=== PATIENT | female | born 1970 | race Caucasian/White ===

== ENCOUNTER 2017-07-20 16:53 | Emergency (ER) | payer OTHER ==
--- NOTE | 2017-07-20 17:44 | PDOC ---
Rapid Medical Evaluation Time Seen by Provider: 07/20/17 17:41 Medical Evaluation: Allergies Allergy/AdvReac Type Severity Reaction Status Date / Time No Known Allergies Allergy Verified 08/20/15 18:07 07/20/17 17:41 I have performed a brief in-person evaluation of the patient. The patient presents with a chief complaint of : sent by pmd for further evaluation of left flank pain with no dysuria. States left flank pain since Tuesday, has history of kidney stones Seen by pmd sent to ed for further evaluation and ultrasound. Denies fever or chills Pertinent physical exam findings. NAD unlabored breathing + left cva tenderness, non tender lower abdomen I have ordered the following urinalysis, labs This patient will proceed to the ED for further evaluation.
[2017-07-20] MEDS ORDERED: SODIUM CHLORIDE 0.9% 500 ML INFUS.BAG IV ONE (17:47)
[2017-07-20 17:48] VITALS: BP 104/44; PULSE 77; TEMP 98.2; BMI 37.0
--- NOTE | 2017-07-20 17:56 | PDOC ---
History of Present Illness - General Chief Complaint: Pain, Acute Stated Complaint: PCP SENT/PAIN, ACUTE Time Seen by Provider: 07/20/17 17:41 - History of Present Illness Initial Comments: 47 year old female with PMH of renal stone x 2 presenting with left lower back pain and urinary symptoms for the past few days. She states that this pain radiates from her left lower back to her pelvis since Tuesday with darker urine. Denies nausea, vomiting, diarrhea, constipation or other symptoms. She has never been worked up by a urologist but stats she was told that she had some kidney disease when she was young. 07/20/17 18:43 Past History - Past Medical History Allergies/Adverse Reactions: Allergies Allergy/AdvReac Type Severity Reaction Status Date / Time No Known Allergies Allergy Verified 07/20/17 17:43 Home Medications: Ambulatory Orders NK [No Known Home Medication] 07/20/17 COPD: No Kidney Stones: Yes - Reproductive History Spontaneous : 2 - Suicide/Smoking/Psychosocial Hx Smoking Status: Yes Smoking History: Former smoker Have you smoked in the past 12 months: Yes Number of Cigarettes Smoked Daily: 3 If you are a former smoker, when did you quit?: 12[facility] Information on smoking cessation initiated: No Hx Alcohol Use: No Drug/Substance Use Hx: No Substance Use Type: None Review of Systems - Review of Systems Constitutional: No: Chills, Diaphoresis, Fever HEENTM: No: Recent change in vision, Double Vision Respiratory: No: Cough, Orthopnea, Shortness of Breath Cardiac (ROS): No: Chest Pain, Edema, Irregular Heart Rate ABD/GI: No: Constipated, Diarrhea, Nausea, Vomiting : Yes: Frequency. No: Burning, Dysuria, Discharge, Pain Musculoskeletal: Yes: Back Pain Integumentary: No: Lesions, Lumps, Pallor Neurological: No: Headache, Numbness, Paresthesia, Weakness Psychiatric: No: Anxiety, Depression *Physical Exam - Vital Signs Last Vital Signs Temp Pulse Resp BP Pulse Ox 98.2 F 77 20 104/44 100 07/20/17 17:43 07/20/17 17:43 07/20/17 17:43 07/20/17 17:43 07/20/17 17:43 - Physical Exam General Appearance: Yes: Nourished, Appropriately Dressed. No: Apparent Distress HEENT: positive: EOMI, DEONDRE, Normal ENT Inspection, Normal Voice Neck: positive: Trachea midline, Normal Thyroid, Supple. negative: Tender, Rigid Respiratory/Chest: positive: Lungs Clear, Normal Breath Sounds. negative: Chest Tender, Respiratory Distress, Accessory Muscle Use Cardiovascular: positive: Regular Rhythm, Regular Rate Gastrointestinal/Abdominal: positive: Normal Bowel Sounds, Flat, Soft. negative : Tender Musculoskeletal: positive: Normal Inspection. negative: CVA Tenderness Extremity: positive: Normal Capillary Refill, Normal Inspection, Normal Range of Motion. negative: Tender Integumentary: positive: Normal Color, Dry, Warm Neurologic: positive: computer clerk II-XII NML intact, Fully Oriented, Alert, Normal Mood/ Affect, Normal Response, Motor Strength 06/25 ED Treatment Course - LABORATORY CBC & Chemistry Diagram: 07/20/17 18:01 07/20/17 18:01 Medical Decision Making - Medical Decision Making 47 year old female with PMH Of renal nephrolithiases with left LBP/ flank pain radiating to the groin concerning for the same. UA clear and HCG negative. Given 15 Toradol IV and pending spiral CT for stone as patient was signed out ot Dr. Bartlett in stable condition. 07/20/17 18:53 *DC/Admit/Observation/Transfer Diagnosis at time of Disposition: Renal colic on left side - Referrals Referrals: Jennifer Figueroa MD [Primary Care Provider] - - Patient Instructions - Post Discharge Activity
[2017-07-20 18:12] LABS: BASO % 1.3 % (0-2.0); EOS % 5.4 % (0-4.5); HEMATOCRIT 39.5 % (32.4-45.2); HEMOGLOBIN 12.9 GM/dL (10.7-15.3); LYMPH % 26.5 % (8-40); MCH 26.8 pg (25.7-33.7); MCHC 32.7 g/dl (32.0-36.0); MEAN CELL VOLUME 81.9 fl (80-96); MEAN PLT VOLUME 10.2 fl (7.5-11.1); MONO % 7.6 % (3.8-10.2); NEUT % 59.2 % (42.8-82.8); PLATELET COUNT 227 K/MM3 (134-434); RBC 4.83 M/mm3 (3.60-5.2); RDW 14.9 % (11.6-15.6); WHITE BLOOD COUNT 9.5 K/mm3 (4.0-10.0)
[2017-07-20] MEDS ORDERED: KETOROLAC TROMETHAMINE 15 MG/ML VIAL IVPUSH ONE (18:26)
[2017-07-20 18:31] LABS: URINE APPEARANCE CLEAR; URINE BILIRUBIN NEGATIVE (<2.0 mg/dL); URINE COLOR YELLOW; URINE GLUCOSE (UA) NEGATIVE (NEGATIVE); URINE KETONE TRACE (NEGATIVE); URINE LEUK ESTERASE NEGATIVE (NEGATIVE); URINE NITRITE NEGATIVE (NEGATIVE); URINE PROTEIN NEGATIVE (NEGATIVE); URINE UROBILINOGEN NEGATIVE mg/dL (0.2-1.0)
[2017-07-20] MEDS ORDERED: KETOROLAC TROMETHAMINE 15 MG/ML VIAL ONE (18:34)
[2017-07-20 18:40] LABS: ALBUMIN 3.8 g/dl (3.4-5.0); ANION GAP 8 (8-16); BILIRUBIN,TOTAL 0.2 mg/dL (0.2-1.0); BLOOD UREA NITROGEN 13 mg/dL (7-18); CALCIUM 9.2 mg/dL (8.5-10.1); CHLORIDE 107 mmol/L (98-107); CO2 27 mmol/L (21-32); CREATININE 0.9 mg/dL (0.55-1.02); GLUCOSE,RANDOM 82 mg/dL (74-106); POTASSIUM 4.2 mmol/L (3.5-5.1); SGOT/AST 25 U/L (15-37); SGPT/ALT 23 U/L (12-78); SODIUM 142 mmol/L (136-145); TOT PROT 7.4 g/dl (6.4-8.2)
[2017-07-20 18:41] LABS: ALK PHOS 77 U/L (45-117)
--- NOTE | 2017-07-20 20:51 | PDOC ---
*Physical Exam - Vital Signs Last Vital Signs Temp Pulse Resp BP Pulse Ox 98.2 F 77 20 104/44 100 07/20/17 17:43 07/20/17 17:43 07/20/17 17:43 07/20/17 17:43 07/20/17 17:43 - Physical Exam Comments: 07/20/17 20:50 GENERAL: Awake, alert, and fully oriented, in no acute distress HEAD: No signs of trauma, normocephalic, atraumatic EYES: PERRLA, EOMI, sclera anicteric, conjunctiva clear ENT: Hearing grossly normal, nares patent, oropharynx clear without exudates. Moist mucosa NECK: Normal ROM, supple, no lymphadenopathy, JVD, or masses LUNGS: No distress, speaks full sentences, clear to auscultation bilaterally HEART: Regular rate and rhythm, normal S1 and S2, no murmurs, rubs or gallops, peripheral pulses normal and equal bilaterally. ABDOMEN: Soft, +left sided flank ttp, normoactive bowel sounds. No guarding, no rebound. No masses EXTREMITIES : Normal inspection, Normal range of motion, no edema. No clubbing or cyanosis. SKIN: Warm, Dry, normal turgor, no rashes or lesions noted ED Treatment Course - LABORATORY CBC & Chemistry Diagram: 07/20/17 18:01 07/20/17 18:01 - ADDITIONAL ORDERS Additional order review: Laboratory Results 07/20/17 07/20/17 07/20/17 18:05 18:05 18:01 Sodium 142 Potassium 4.2 Chloride 107 Carbon Dioxide 27 Anion Gap 8 BUN 13 Creatinine 0.9 Creat Clearance w eGFR > 60 Random Glucose 82 Calcium 9.2 Total Bilirubin 0.2 D AST 25 ALT 23 Alkaline Phosphatase 77 Total Protein 7.4 Albumin 3.8 Urine Color Yellow Urine Appearance Clear Urine pH 5.0 Ur Specific Moroni 1.024 Urine Protein Negative Urine Glucose (UA) Negative Urine Ketones Trace H Urine Blood Negative Urine Nitrite Negative Urine Bilirubin Negative Urine Urobilinogen Negative Ur Leukocyte Esterase Negative Urine HCG, Qual Negative 07/20/17 18:01 RBC 4.83 MCV 81.9 MCHC 32.7 RDW 14.9 MPV 10.2 Neutrophils % 59.2 Lymphocytes % 26.5 Monocytes % 7.6 Eosinophils % 5.4 H Basophils % 1.3 - Medications Given in the ED: ED Medications Discontinued Medications Generic Name Dose Route Start Last Admin Trade Name Freq PRN Reason Stop Dose Admin Ketorolac Tromethamine 15 mg 07/20/17 18:26 07/20/17 18:37 Toradol Injection - IVPUSH 07/20/17 18:27 15 mg ONCE ONE Administration Sodium Chloride 1,000 ml 07/20/17 17:47 07/20/17 18:14 Normal Saline - IV 07/20/17 17:48 1,000 ml ONCE ONE Administration Medical Decision Making - Medical Decision Making 07/20/17 20:48 47 yo F with h/o nephrolithiases who p/w left flank pain radiating to the groin . R/o nephrolithaisis/obstructive uropathy. Received handoff from Dr. Baker. CBC, CMP, UA negative. HCG negative. Patient received [address] pending. ED Course: 07/20/17 20:50 CT AP: Unremarkable. Minimal to mild sigmoid diverticulosis. 07/20/17 20:57 Patient pain mildly improved. 07/20/17 21:04 Naproxen sent to pharmacy. Patient stable for d/c with return precautions. Advised to f/u with PMD. *DC/Admit/Observation/Transfer Diagnosis at time of Disposition: Renal colic on left side - Discharge Dispostion Disposition: HOME Condition at time of disposition: Stable Decision to Admit order: No - Prescriptions Prescriptions: Naproxen 250 mg PO BID PRN 15 Days #30 tablet MDD 2 tab PRN Reason: Back Pain - Referrals Referrals: Jennifer Figueroa MD [Primary Care Provider] - - Patient Instructions Printed Discharge Instructions: DI for Flank Pain Additional Instructions: Please return to the emergency department with any new or worsening symptoms or concerns. Please follow up with your primary care physician within 72 hours. Can take Naproxen two times a day as needed for pain. - Post Discharge Activity - Attestations Physician Attestion: 07/20/17 20:51 I attest to the information provided in this note.
== END 2017-07-20 21:34 | disposition home or self-care (01) ==
LOC: JER 16:53
PROC: 3E0337Z Introduction of Electrolytic and Water Balance Substance into Peripheral Vein, Percutaneous Approach (ICD-10-PCS; principal; 2017-07-20)
PROC: 3E0333Z Introduction of Anti-inflammatory into Peripheral Vein, Percutaneous Approach (ICD-10-PCS; 2017-07-20)
DX: N23 Unspecified renal colic (principal); N20.0 Calculus of kidney; Z87.891 Personal history of nicotine dependence
CPT/HCPCS: 36415; 74176; 80053; 81003; 84703; 85025; 87086; 99284-25

== ENCOUNTER 2017-08-07 13:46 | Emergency (ER) | payer OTHER ==
[2017-08-07 14:17] VITALS: BP 120/72; PULSE 90; TEMP 98; BMI 37.0
[2017-08-07] MEDS ORDERED: KETOROLAC TROMETHAMINE 60 MG/2 ML VIAL IM ONE (14:33)
--- NOTE | 2017-08-07 14:36 | PDOC ---
History of Present Illness - General Chief Complaint: Pain, Acute Stated Complaint: PAIN Time Seen by Provider: 08/07/17 14:18 History Source: Patient Exam Limitations: No Limitations - History of Present Illness Initial Comments: 08/07/17 14:34 Patient came with complaints of left shoulder and neck pain 2-3 days. States started in her neck and is progressively worsened where she has difficulty lifting her arm due to the tenderness and spasm of her left shoulder and neck muscles. Has intermittent numbness to her fingers but resolves. Has taken only Tylenol for pain relief. Denies any heavy lifting or strenuous activity recently , denies any recent trauma. Works as a student. Occurred: reports: yesterday Severity: reports: moderate Pain Location: reports: back, neck Associated Symptoms (Fall): muscle spasms, neck pain Past History - Travel Traveled outside of the country in the last 30 days: No Close contact w/someone who was outside of country & ill: No - Past Medical History Allergies/Adverse Reactions: Allergies Allergy/AdvReac Type Severity Reaction Status Date / Time No Known Allergies Allergy Verified 08/07/17 14:15 Home Medications: Ambulatory Orders Cyclobenzaprine HCl 10 mg PO Q8H PRN #14 tablet 08/07/17 COPD: No Kidney Stones: Yes - Reproductive History Cervical CA: No Dysfunctional Uterine Bleeding: No Ectopic : No Endometrial CA: No Polycystic Ovaries: No Spontaneous : 2 - Suicide/Smoking/Psychosocial Hx Smoking Status: Yes Smoking History: Never smoked Have you smoked in the past 12 months: Yes Number of Cigarettes Smoked Daily: 3 If you are a former smoker, when did you quit?: 12mths Information on smoking cessation initiated: No Hx Alcohol Use: No Drug/Substance Use Hx: No Substance Use Type: None Review of Systems - Review of Systems Able to Perform ROS?: Yes Is the patient limited Nepali proficient: Yes Constitutional: Yes: See HPI. No: Symptoms Reported, Fever, Loss of Appetite HEENTM: Yes: See HPI. No: Symptoms Reported Respiratory: Yes: Symptoms reported, See HPI, Cough Musculoskeletal: Yes: Symptoms Reported, See HPI, Back Pain, Muscle Pain, Neck Pain (2 left sternocleidomastoid, with pressure reproducing pain to left shoulder and scalp at pressure points. Muscle is tense with some spasm palpated. ) Integumentary: Yes: Symptoms Reported Neurological: Yes: Symptoms reported, See HPI, Headache All Other Systems: Reviewed and Negative *Physical Exam - Vital Signs Last Vital Signs Temp Pulse Resp BP Pulse Ox 98 F 90 18 120/72 98 08/07/17 14:13 08/07/17 14:13 08/07/17 14:13 08/07/17 14:13 08/07/17 14:13 - Physical Exam General Appearance: Yes: Nourished, Appropriately Dressed, Apparent Distress, Mild Distress HEENT: positive: DEONDRE, Normal ENT Inspection, Normal Voice, TMs Normal, Pharynx Normal Neck: positive: Tender, Supple, Decreased range of motion (due to pain and spasm to SCM and upper trapezius . No CSPine pain , crepitus or stepofff. ), Other Respiratory/Chest: positive: Lungs Clear, Normal Breath Sounds Extremity: positive: Normal Capillary Refill, Normal Range of Motion (but painful) Integumentary: positive: Normal Color, Dry, Warm Neurologic: positive: wildlife control agent II-XII NML intact, Fully Oriented, Alert, Normal Mood/ Affect, Normal Response, Motor Strength 5/5 *DC/Admit/Observation/Transfer Diagnosis at time of Disposition: Muscle pain, cervical - Discharge Dispostion Disposition: HOME Condition at time of disposition: Stable Decision to Admit order: No - Prescriptions Prescriptions: Cyclobenzaprine HCl 10 mg PO Q8H PRN #14 tablet PRN Reason: spasm - Referrals Referrals: Jennifer Figueroa MD [Primary Care Provider] - - Patient Instructions Printed Discharge Instructions: DI for Cervical Muscle Strain Additional Instructions: Rest, no heavy lifting or exercise until pain is resolved Hot soaks to neck and low back as often as possible/hot showers or Jacuzzis No massage or therapy until spasm is gone Continue Naprosyn 500 mg tablet, 1 tablet every 8 hours for the next 3 days then as needed for pain and swelling Cyclobenzaprine 1-10mg every 8 hours as needed for spasm If not significant improvement within 24 hours with medication and rest regime, followup with private physician for change in medications and /or therapy. - Post Discharge Activity Forms/Work/School Notes: Back to School
[2017-08-07] MEDS ORDERED: KETOROLAC TROMETHAMINE 60 MG/2 ML VIAL ONE (14:37)
== END 2017-08-07 14:46 | disposition home or self-care (01) ==
LOC: JER 13:46 → JERFT 13:46
PROC: 3E0233Z Introduction of Anti-inflammatory into Muscle, Percutaneous Approach (ICD-10-PCS; principal; 2017-08-07)
DX: M62.838 Other muscle spasm (principal)
CPT/HCPCS: 96372; 99281-25

== ENCOUNTER 2018-01-16 06:01 | Day surgery (SDC) | payer OTHER ==
[2018-01-05 10:32] VITALS: BMI 35.5
[2018-01-16] MEDS ORDERED: ROPIVACAINE HCL 0.5% 30ML VIAL ONE (07:12)
[2018-01-16] MEDS ORDERED: EPINEPHrine/PF 1 MG/1 ML (1:1,000) AMPULE ONE (07:13)
[2018-01-16] MEDS ORDERED: MIDAZOLAM HCL 2 MG/2 ML SINGLE DOSE VIAL ONE (07:27)
[2018-01-16] MEDS ORDERED: fentaNYL CITRATE 250 MCG/5 ML VIAL ONE ×2 (07:27)
[2018-01-16] MEDS ORDERED: MORPHINE 5 MG/10 ML AMP - FOR COMPOUNDING USE ONLY ONE (07:29)
[2018-01-16] MEDS ORDERED: ROCURONIUM BROMIDE 50 MG/5 ML VIAL ONE (07:29)
[2018-01-16] MEDS ORDERED: PROPOFOL 20 ML ONE (08:11)
[2018-01-16] MEDS ORDERED: DEXAMETHASONE SOD PHOSPHATE 4 MG/1 ML VIAL ONE ×2 (08:14→08:54)
[2018-01-16] MEDS ORDERED: LIDOCAINE HCL/PF 2% SDV 5ML VIAL ONE (08:14)
[2018-01-16] MEDS ORDERED: ONDANSETRON 4 MG/2 ML VIAL ONE ×2 (08:14→08:54)
[2018-01-16] MEDS ORDERED: GLYCOPYRROLATE 0.2 MG/1 ML VIAL ONE ×2 (09:06)
[2018-01-16] MEDS ORDERED: NEOSTIGMINE METHYLSULFATE 0.5 MG/ML - 10 ML MDV ONE (09:06)
[2018-01-16] MEDS ORDERED: IBUPROFEN 400 MG TABLET (FP) PO PRN (10:12)
[2018-01-16] MEDS ORDERED: oxyCODONE HCL 5 MG TABLET PO PRN ×2 (10:12→11:37)
[2018-01-16] MEDS ORDERED: ACETAMINOPHEN 325 MG TABLET (FP) PO PRN (10:12)
[2018-01-16] MEDS ORDERED: ONDANSETRON 4 MG/2 ML VIAL IVPUSH PRN (10:12)
[2018-01-16] MEDS ORDERED: LACTATED RINGERS SOLUTION 1,000 ML IV SCH (10:15)
[2018-01-16] MEDS ORDERED: oxyCODONE HCL 5 MG TABLET ONE (11:27)
[2018-01-16] MEDS ORDERED: oxyCODONE HCL 5 MG TABLET PO ONE (11:30)
[2018-01-16] MEDS ORDERED: PROMETHAZINE HCL 25 MG/1 ML VIAL IVPUSH ONE ×2 (11:40→11:45)
[2018-01-16 14:05] VITALS: BP 118/79; PULSE 87; TEMP 97.9
--- NOTE | 2018-01-16 15:24 | OPR ---
Date of Procedure: 01/16/2018 Procedure: Left Shoulder- 1. Diagnostic arthroscopy. 2. Arthroscopic limited debridement of glenohumeral joint (26252) 3. Arthroscopic subacromial decompression (24290). 4. Arthroscopic-assisted biceps tenodesis-subpectoral (80258). Preoperative Diagnoses: 1. Biceps tendon degeneration. 2. Subacromial impingement. 3. Glenohumeral synovitis. Postoperative Diagnoses: 1. Biceps tendon degeneration and tear. 3. Labral degeneration and fraying; SLAP tear. 4. Partial articular sided rotator cuff tear-supraspinatus 5. Glenohumeral synovitis. 6. Subacromial bursitis and adhesions. Surgeon: Marlo Grider DO Assistants: Guillermo Christensen DO Anesthesia: General and local infiltration analgesic; suprascapular nerve, axillary nerve, local superficial field Estimated Blood Loss: Minimal Drains: None Total IV Fluids: Per anesthesia record Specimens: None Implants: 2.6 mm FiberTak, double-loaded with 1.2 mm SutureTape (Arthrex) Complications: None Disposition: PACU Condition: Hemodynamically stable Indications: Rena Arteaga presented to us with chronic shoulder pain that failed conservative measures. Her symptoms, signs, and imaging were consistent with the above noted diagnoses. She ultimately elected to proceed with surgical intervention after discussion of the risks, benefits, alternatives. We discussed risks including but not limited to, bleeding, pain, infection, scarring, damage to neurovascular structures, blood clots, pulmonary embolus, need for additional surgery, incomplete relief of pain, and incomplete return of function. She expressed understanding and wished to proceed. She underwent preoperative medical evaluation clearance and optimization prior to surgery. Procedure Details: Ms. Arteaga was identified in the preoperative area. The shoulder was marked as the operative site and consent was completed and confirmed. She was later transferred to the operating room and placed in supine position the operating room. General anesthesia was induced without difficulty. She was repositioned into beach chair with all bony prominences appropriately padded. The neck was in neutral alignment. A surgical time-out was performed identifying the correct patient, procedure, and site. Antibiotics were given within 1 hour prior to surgical incision. The upper extremity was prepped and draped in standard sterile fashion. Diagnostic arthroscopy: We began the procedure with the standard posterolateral portal, entered the glenohumeral joint, and an anterior portal was made within the rotator cuff interval under direct visualization with the assistance of a spinal needle. A probe was used to assist with diagnostic arthroscopy and we visualized from both posteriorly and anteriorly. Evaluation of the glenohumeral joint showed mild to moderate synovitis superiorly. There was a Type II SLAP tear. The anterior/inferior labrum was intact. There was posterior/inferior labral fraying. The biceps tendon showed hyperemia. The rotator cuff interval was normal. The axillary recess was empty. Evaluation of the subscapularis tendon showed no tears. Evaluation of the supraspinatus showed partial (<25%) tearing of the articular surface. The infraspinatus and teres minor tendons were intact. Evaluation of the glenoid and humeral head showed no significant chondral defects. Evaluation of the subacromial space showed moderate bursitis and adhesions. There was a small acromial spur anteriorly. There was fraying of the CA ligament. The AC joint was intact. Arthroscopic limited debridement of the glenohumeral joint: We used a combination of the arthroscopic motorized shaver and radiofrequency device to perform a limited debridement inside the glenohumeral joint. The hyperemia, erythema, and synovitis of the joint and joint capsule was focally debrided. Synovitic fronds were thermally ablated. Labral fraying and degeneration was also resected and debrided to a stable edge. The biceps tendon was tenotomized as it inserted into the superior labral complex and the remaining portion of the biceps tendon was allowed to retract into the bicipital groove for later tenodesis. Arthroscopic subacromial decompression: The subacromial space was entered from posteriorly. A separate anterior-lateral portal was made for additional instrumentation and visualization. We then visualized the rotator cuff and did not identify any tear on the bursal surface of the tendon. We performed our subacromial decompression in a systematic fashion from anterior to posterior and from lateral to medial, removing the bursal tissue carefully. This was done with a radiofrequency device and motorized shaver. The undersurface of the acromion was skeletonized and gently debrided to a flat smooth undersurface. There was a small anterior-inferior spur that was resected with a motorized bur. Arthroscopic-assisted biceps tenodesis: We made a 2 cm incision along Aditya's lines in the axillary fold. Sharp dissection was carried out down to the level of the pectoralis major. The plane between the pectoralis major and the short head of biceps tendon was developed bluntly down to the level of the humeral bone, where we identified the long head of biceps tendon and delivered it retrograde out of the wound. The underlying soft tissue was resected and the bone was frayed with a 1/4-inch osteotome. We then selected a 2.6 mm FiberTak, double-loaded with 1.2 mm SutureTape (Arthrex) and placed the anchor high within the bicipital groove underneath the pectoralis major tendon. The sutures were then passed just proximal to the musculotendinous junction of the long head of biceps in an alternating simple versus lasso loop configuration. Tying these sutures down tenodesed the tendon onto the underlying frayed humeral bone. We used an arthroscopic knot pusher to get excellent knot fixation, and then arthroscopic handbag parts cutter to cut the remaining length of the suture. The remaining length of the biceps tendon was resected. We confirmed our arthroscopic knots and position of the biceps tendon underneath the pectoralis major with the arthroscope. We thoroughly irrigated the wound. The wound was closed in a buried, deep 2-0 Vicryl stitches, followed by a 3-0 Biosyn subcuticular stitch and then Dermabond skin glue. Wound closure: The wounds were closed with 3-0 Biosyn subcuticular stitch with Steri strips. The shoulder was sterilely dressed and the arm was placed in a shoulder immobilizer. Post-operative Details: The patient was transferred to the recovery room in stable condition. I spoke with the patient regarding the operation after surgery. Postoperative rehabilitation: Arthroscopic biceps tenodesis protocol She will remain in a sling for 3-4 weeks. Early passive range of motion okay with no limits and advance as tolerated; no pendulums. No strengthening for at least 3 months. Attestation for assistant signal maintainer: Dr. Guillermo Christensen DO acted as the assistant signal maintainer. There was no qualified resident available to do so. I was present for surgical time out and all hanley and critical portions of the case. Marlo Grider DO Orthopedic Surgery
== END 2018-01-16 14:00 | disposition home or self-care (01) ==
LOC: FASU 06:01
PROVIDERS: ATTEND Orthopaedic Surgery
PROC: 0RBK4ZZ Excision of Left Shoulder Joint, Percutaneous Endoscopic Approach (ICD-10-PCS; principal; 2018-01-16 08:11)
PROC: 0RNK4ZZ Release Left Shoulder Joint, Percutaneous Endoscopic Approach (ICD-10-PCS; 2018-01-16 08:11)
PROC: 0LS20ZZ Reposition Left Shoulder Tendon, Open Approach (ICD-10-PCS; 2018-01-16 08:11)
DX: M67.814 Other specified disorders of tendon, left shoulder (principal); M65.812 Other synovitis and tenosynovitis, left shoulder; M75.102 Unspecified rotator cuff tear or rupture of left shoulder, not specified as traumatic; M75.52 Bursitis of left shoulder; S43.432A Superior glenoid labrum lesion of left shoulder, initial encounter; X58.XXXA Exposure to other specified factors, initial encounter; Y93.9 Activity, unspecified; Y92.9 Unspecified place or not applicable
CPT/HCPCS: 84703; 94760

== ENCOUNTER 2018-07-03 14:25 | Emergency (ER) | payer OTHER ==
[2018-07-03 14:31] VITALS: BP 142/109; PULSE 78; TEMP 97.6; BMI 41.0
--- NOTE | 2018-07-03 14:31 | PDOC ---
Rapid Medical Evaluation Time Seen by Provider: 07/03/18 14:27 Medical Evaluation: Allergies Allergy/AdvReac Type Severity Reaction Status Date / Time No Known Allergies Allergy Verified 07/03/18 14:27 07/03/18 14:28 I have performed a brief in-person evaluation of this patient. The patient presents with a chief complaint of: R knee swelling > 2 weeks. No trauma. Had XR today (in PACs at [facility]) but does not know results. Here because of pain. Taking motrin 800mg w/ no relief. No f/c. No h/o gout or septic joint Pertinent physical exam findings:defer to provider I have ordered the following:nothing The patient will proceed to the ED for further evaluation. Discharge Disposition - Diagnosis Knee pain Qualifiers: Chronicity: acute Laterality: right Qualified Code(s): M25.561 - Pain in right knee - Referrals - Patient Instructions - Post Discharge Activity
[2018-07-03] MEDS ORDERED: KETOROLAC TROMETHAMINE 30 MG/1 ML VIAL IM ONE (15:00)
[2018-07-03] MEDS ORDERED: KETOROLAC TROMETHAMINE 30 MG/1 ML VIAL ONE (15:12)
--- NOTE | 2018-07-03 15:22 | PDOC ---
History of Present Illness - General Chief Complaint: Pain, Acute Stated Complaint: RT KNEE PAIN/SWOLLEN Time Seen by Provider: 07/03/18 14:27 History Source: Patient Exam Limitations: No Limitations - History of Present Illness Initial Comments: 07/03/18 15:18 48 year with history of x 2 and left shoulder surgery presents for right knee pain x 2 months. Patient reports no injuries or falls. Seen by orthopedic surgeon today sent for xray presents to ed for xray results. States she can't wait for follow up to go back. Denies injury Severity: Yes: mild Lower Extremity Pain Location: right: knee Method of Injury: Yes: unknown Modifying Factors: improves with: immobilization, pain medication Lower Ext. Injury Location - Specific Injury Location Hips: bilateral hip: no evidence of injury Legs: bilateral: normal inspection Knees: right pain Ankle: bilateral no evidence of injury Foot: bilateral foot no evidence of injury Extremity Pain Location - Extremity Pain Location Extremity Pain Locations: right: knee Past History - Travel Traveled outside of the country in the last 30 days: No Close contact w/someone who was outside of country & ill: No - Past Medical History Allergies/Adverse Reactions: Allergies Allergy/AdvReac Type Severity Reaction Status Date / Time No Known Allergies Allergy Verified 07/03/18 14:27 Home Medications: Ambulatory Orders Naproxen [EC-Naproxen] 500 mg PO BID #20 tablet. 07/03/18 Anemia: No Asthma: No Cancer: No Cardiac Disorders: No CVA: No COPD: No CHF: No Dementia: No Diabetes: No GI Disorders: No Disorders: Yes (kidney stones,) HTN: No Hypercholesterolemia: No Kidney Stones: Yes Liver Disease: No Seizures: No Thyroid Disease: No - Surgical History Abdominal Surgery: No Appendectomy: No Cardiac Surgery: No Cholecystectomy: No Lung Surgery: No Neurologic Surgery: No Orthopedic Surgery: Yes (left bicep repair 01/16/2018) - Reproductive History Cervical CA: No Dysfunctional Uterine Bleeding: No Ectopic : No Endometrial CA: No Polycystic Ovaries: No Spontaneous : 2 - Suicide/Smoking/Psychosocial Hx Smoking Status: Yes Smoking History: Never smoked Have you smoked in the past 12 months: No Number of Cigarettes Smoked Daily: 3 If you are a former smoker, when did you quit?: 1 y ago Hx Alcohol Use: No Drug/Substance Use Hx: No Substance Use Type: None Hx Substance Use Treatment: No Review of Systems - Review of Systems Able to Perform ROS?: Yes Is the patient limited Romanian proficient: No Constitutional: No: Chills, Fever, Weakness Respiratory: No: Shortness of Breath, Wheezing Cardiac (ROS): No: Chest Pain, Palpitations ABD/GI: No: Poor Appetite, Poor Fluid Intake, Indigestion, Abdominal cramping Musculoskeletal: Yes: Joint Pain. No: Back Pain, Joint Swelling, Muscle Pain Integumentary: No: Bruising, Erythema Neurological: No: Headache, Numbness, Paresthesia Psychiatric: No: Stressors *Physical Exam - Vital Signs Last Vital Signs Temp Pulse Resp BP Pulse Ox 97.6 F 78 18 142/109 H 98 07/03/18 14:29 07/03/18 14:29 07/03/18 14:29 07/03/18 14:29 07/03/18 14:29 - Physical Exam General Appearance: Yes: Nourished, Appropriately Dressed. No: Apparent Distress HEENT: positive: TMs Normal, Pharynx Normal Neck: positive: Supple. negative: Lymphadenopathy (R), Lymphadenopathy (L) Respiratory/Chest: positive: Lungs Clear Cardiovascular: positive: Regular Rhythm, Regular Rate Musculoskeletal: negative: CVA Tenderness Extremity: positive: Normal Capillary Refill. negative: Swelling, Erythema, Inflammation Neurologic: positive: Fully Oriented Medical Decision Making - Medical Decision Making 07/03/18 15:20 48 year with history of x 2 and left shoulder surgery presents for right knee pain x 2 months. Plan: analgesia refer back to orthopedic surgeon *DC/Admit/Observation/Transfer Diagnosis at time of Disposition: Knee pain Qualifiers: Chronicity: acute Laterality: right Qualified Code(s): M25.561 - Pain in right knee - Discharge Dispostion Disposition: HOME Condition at time of disposition: Good - Prescriptions Prescriptions: Naproxen [EC-Naproxen] 500 mg PO BID #20 tablet.dr - Referrals Referrals: Nando Wiggins MD [Staff Physician] - - Patient Instructions - Post Discharge Activity Forms/Work/School Notes: Back to Work
== END 2018-07-03 15:32 | disposition home or self-care (01) ==
LOC: JERFT 14:25
PROC: 3E0233Z Introduction of Anti-inflammatory into Muscle, Percutaneous Approach (ICD-10-PCS; principal; 2018-07-03)
DX: M25.561 Pain in right knee (principal)
CPT/HCPCS: 99281-25

== ENCOUNTER 2018-09-18 08:28 | Day surgery (SDC) | payer OTHER ==
[2018-09-12 17:43] VITALS: BMI 40.6
[2018-09-18] MEDS ORDERED: BUPIVACAINE HCL 0.25% 125 MG/50 ML VIAL ONE (09:11)
[2018-09-18] MEDS ORDERED: MIDAZOLAM HCL 2 MG/2 ML SINGLE DOSE VIAL ONE (09:22)
[2018-09-18] MEDS ORDERED: PROPOFOL 20 ML ONE ×2 (09:23→09:41)
[2018-09-18] MEDS ORDERED: SUCCINYLCHOLINE CHLORIDE 200 MG/10 ML SYRINGE ONE (09:23)
[2018-09-18] MEDS ORDERED: DEXAMETHASONE SOD PHOSPHATE 4 MG/1 ML VIAL ONE (09:45)
[2018-09-18] MEDS ORDERED: ceFAZolin SODIUM 1 GM VIAL ONE (09:45)
[2018-09-18] MEDS ORDERED: ONDANSETRON 4 MG/2 ML VIAL ONE ×2 (09:45→10:38)
[2018-09-18] MEDS ORDERED: KETOROLAC TROMETHAMINE 30 MG/1 ML VIAL ONE (10:33)
[2018-09-18] MEDS ORDERED: ONDANSETRON 4 MG/2 ML VIAL IVPUSH PRN (10:51)
[2018-09-18] MEDS ORDERED: oxyCODONE HCL 5 MG TABLET PO PRN (10:51)
--- NOTE | 2018-09-18 10:51 | OPR ---
DATE OF OPERATION: 09/18/18 TITLE OF OPERATION: RIGHT Medial partial meniscectomy, chondroplasty patella/trochlea and medial femoral condyle, and synovectomy (limited). PREOPERATIVE DIAGNOSIS: RIGHT Medial meniscus tear, synovitis. POSTOPERATIVE DIAGNOSIS: RIGHT Medial meniscus tear, chondromalacia patella/trochlea and medial femoral condyle, and synovitis SURGEON: Guillermo Christensen DO BOILER ENGINEER: Marlo Grider DO ANESTHESIA: General anesthesia SPECIMEN: Meniscus shavings COMPLICATIONS: none EBL: 10 ccs INDICATIONS FOR SURGERY: Ms. Arteaga is a 48 year old female who presented in the preoperative setting with a chief complaint of right knee pain. Based on their pre-injury level of activity, and after failure of conservative management, including bracing, physical therapy, surgical treatment was discussed. The risks and benefits of surgery and anesthesia were discussed in detail including but not limited to pain, blood clot, bleeding, infection, scarring, damage to vessels and nerves, failure to obtain the desired result, failure to heal, failure to return to sport or work. Understanding the risks and benefits, Ms. Arteaga opted to proceed with surgical management. SURGEON'S NARRATIVE: After informed consent was obtained the patient was brought the operating room prepped draped in usual fashion sterile technique. Timeout was called. Site verification was performed and perioperative antibodies were administered. A standard anterolateral portal was made and the 4 mm 30 degree arthroscope was inserted into the knee joint without difficulty. 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 Turning my attention the medial compartment the patient had a intrasubstance radial tear of the the posterior horn of the medial meniscus that reached the articular surface. There was mild associated chondromalacia of the medial femoral condyle. I performed a partial medial meniscectomy removing the torn tissue with arthroscopic shaver and biter. I estimate that I removed approximately 40 percent of the meniscus. The remaining meniscus was intact after the resection from root to root. I then performed a chondroplasty of the medial femoral condyle chondromalacia. The ACL was examined and was intact. Turning my attention the lateral compartment the patient did not have a tear of the meniscus. There was no significant associated chondromalacia of the lateral compartment. The meniscus was intact after the resection, from root to root. I then went into the patellofemoral compartment to complete a limited synovectomy, and chondroplasty of the patellofemoral joint. This completed the procedure. I closed incisions with 3-0 nylon, and injected the portal sites with 10cc's total of .25 % Marcaine. A sterile dressing and xeroform and an SHANITA bandage was placed. The patient tolerated procedure well and arrived recovery in stable condition. Marlo Grider DO was first-hardware sales assistant in the case as there were no qualified assistants or residents available. Patient will follow up with me in the office within 10 days for suture removal. She will start ASA 325 QD starting tomorrow for 30 days. She will be WBAT with crutches, and start Physical therapy within 3-5 days. Guillermo Christensen DO
[2018-09-18] MEDS ORDERED: LACTATED RINGERS SOLUTION 1,000 ML IV SCH (11:00)
[2018-09-18] MEDS ORDERED: oxyCODONE HCL 5 MG TABLET ONE (12:35)
[2018-09-18 12:42] VITALS: TEMP 97.7
[2018-09-18 13:46] VITALS: BP 114/79; PULSE 65
--- NOTE | 2018-09-20 15:09 | PATH ---
Surgical Pathology Report Patient Name: MADHURI FRANCO [facility]. Rec. #: [id number] /Age/Gender: 1970 (Age: 48) / F Account: [id number] Location: [facility] Taken: 09/18/2018 Received: 09/18/2018 Reported: 09/20/2018 Physicians: Guillermo Christensen MD Specimen(s) Received SHAVINGS RIGHT KNEE Clinical History Right knee meniscus tear Final Diagnosis KNEE, RIGHT, ARTHROSCOPIC SHAVINGS: FIBROSYNOVIAL TISSUE. Electronically Signed Luna Resendiz M.D. Gross Description Received in formalin, labeled "right knee shavings," is a 4.5 x 4.0 x 0.3 cm. aggregate of horan-yellow soft tissue fragments. A sales representative church furniture portion is submitted in one cassette. /09/19/201809/19/2018
== END 2018-09-18 13:35 | disposition home or self-care (01) ==
LOC: FASU 08:28
PROVIDERS: ATTEND Orthopaedic Surgery Sports Medicine
PROC: 0SBC4ZZ Excision of Right Knee Joint, Percutaneous Endoscopic Approach (ICD-10-PCS; 2018-09-18)
PROC: 0SBC4ZZ Excision of Right Knee Joint, Percutaneous Endoscopic Approach (ICD-10-PCS; principal; 2018-09-18 10:04)
DX: S83.241A Other tear of medial meniscus, current injury, right knee, initial encounter (principal); M65.861 Other synovitis and tenosynovitis, right lower leg; M22.41 Chondromalacia patellae, right knee; X58.XXXA Exposure to other specified factors, initial encounter; Y93.9 Activity, unspecified; Y92.9 Unspecified place or not applicable
CPT/HCPCS: 84703; 88304-TC; 94760

== ENCOUNTER 2018-09-28 13:34 | Emergency (ER) | payer OTHER | END 2018-09-28 17:30 | disposition home or self-care (01) | LOC: JER 13:34 ==